=== PATIENT | female | born 1935 | race Caucasian/White ===

== ENCOUNTER → 2016-08-31 | Outpatient (CLI) | payer MEDICARE ==
[~2016-08-31] MED LIST: ACTOS30 MG PO; AMLODIPINE10 MG PO; COREG CR20 MG PO; CRESTOR40 MG PO; FUROSEMIDE 40MG40 M1 PO; LEVOTHROID0.088 MG PO; NITROGLYCERIN0.4 MG SL; OMEPRAZOLE20 MG PO
--- NOTE | 2016-08-31 21:29 | RADIOLOGY REPORT PS360 ---
CHEST(2 VIEWS-NOT PORTABLE) ORDERING PHYSICIAN : Car Elam MD PATIENT AGE: 81 years GENDER: Female INDICATION: chest symptoms HTN PROCEDURE:HISTORY of cardiac disease cardiac stents hypertension CHEST(2 VIEWS-NOT PORTABLE) COMPARISON: Previous chest film 08/25/2014 as well as portable study 6 2009 FINDINGS: We again see the small nodular density just lateral to the left frankie on. It appears stable in size measuring approximately 15 mm maximally, and again project over the anterior left third rib end. Unchanged since 2014 and likely present on 2009 study. This supports is more likely benign character. In this can be followed. Minor partially calcified density the left suprahilar region intact with stable appearance since 2009. Likely over elements disease. The right frankie and right lung appears stable. Minor chronic changes bilaterally with no discrete new findings. No pleural effusion. Heart normal size mediastinum unremarkable. Chest wall unremarkable. IMPRESSION Nothing definitely acute. Stable appearing chest. Small just less than 15 mm nodular just lateral to the left frankie again noted and can be followed at this point.
== END ==
LOC: RAD 12:42
DX: Z01.818 Encounter for other preprocedural examination (principal)

== ENCOUNTER 2017-05-23 07:33 | Day surgery (SDC) | payer MEDICARE ==
[2017-05-23 08:14] LABS: HEMOGLOBIN 14.6 g/dL (12.2-16.2); LYMPH # 1.4 K/mm3 (0.7-4.5); LYMPH % 34.8 % (10-50.0)
[2017-05-23 08:27] LABS: BUN 20 mg/dL (7-18)
[2017-05-23 08:28] LABS: GFR (ESTIMATED) 48 ML/MIN (59-)
--- NOTE | 2017-05-23 09:50 | RADIOLOGY REPORT PS360 ---
CARDIAC CATHETERIZATION DATE OF CATHETERIZATION:05/23/2017 8:57 AM PROCEDURES: 1. Left heart catheterization 2. Left ventriculogram 3. Selective coronary angiogram 4. Intravascular ultrasound to the LAD INDICATION FOR TEST: 1. Coronary artery disease 2. History of coronary artery stenting 3. 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 COMPLICATIONS: None ESTIMATED BLOOD LOSS: Less than 10 ml. TECHNIQUE: One percent lidocaine used to anesthetize the right anterior aspect of the wrist. The right radial artery was accessed via the Seldinger technique. A 6 Spanish sheath was placed in the right radial artery. 2.5 mg of verapamil, 800 mcg of nitroglycerin and 5000 U Heparin were given through the arterial sheath. The trap catheter was also used to perform left heart catheterization left ventriculogram and selective coronary angiography. A barajas catheter was also used to perform coronary angiography. At the end of the diagnostic angiogram 4000 units of heparin was administered intravenously and a JL 3 guide catheter was placed in the left main artery. A BMW wire was used to traverse the stenosis in the LAD and in intravascular ultrasound probe was advanced throughout the mid LAD stent. Intravascular ultrasound interrogation was performed which demonstrated a nicely sized stent with good apposition and perfect sizing of the stent. Proximal to the stent there was also good transitioning into the large diagonal artery with no significant peristent defect or stenosis. At the end of the procedure ACT was 381. Sheath was removed good hemostasis was achieved using TR banding patient transferred the postop holding area in stable condition. ANGIOGRAPHIC RESULTS: 1. The left main artery normal 2. The left anterior descending artery is proximally normal and then gives rise to the first diagonal artery and first septal construction job cost estimator. There is an angiographic haziness proximal to the mid LAD stent. Intravascular ultrasound probe being demonstrated this was not a significant lesion in the transitioning proximally and distally to the stent were excellent. Distal to the mid LAD stent the remaining LAD is free of disease 3. The circumflex artery is nondominant and normal 4. The right coronary artery is a dominant vessel and has mild 10% proximal mid vessel luminal irregularities 5. The PEREZ ventriculogram reveals normal to hyperdynamic at 75% 6. The left ventricular end-diastolic pressure elevated at 25 mmHg IMPRESSION: 1. Patent mid LAD stent with otherwise insignificant coronary artery disease 2. Hyperdynamic ventricle consistent with hypertensive heart disease 3. Elevated LVEDP consistent with diastolic dysfunction and diastolic congestive heart failure 4. Successful intravascular ultrasound to the mid LAD PLAN: 1. Continue medical management. 2. Patient requires additional diuresis with the addition of a negative inotropes such as diltiazem or verapamil combined with higher dose beta sandy 3. Spironolactone and Lasix in order to decrease EDP 4. Risk factor modification LDL less than 55 5. Cardiac rehabilitation 6. Avoidance of tobacco products
[2017-05-23 13:18] VITALS: BP 112/65
== END 2017-05-23 13:18 | disposition home or self-care (01) ==
LOC: CATHLAB 07:33
PROVIDERS: Internal Medicine
PROC: 4A023N7 Measurement of Cardiac Sampling and Pressure, Left Heart, Percutaneous Approach (ICD-10-PCS; 2017-05-23)
PROC: B2111ZZ Fluoroscopy of Multiple Coronary Arteries using Low Osmolar Contrast (ICD-10-PCS; 2017-05-23)
PROC: B2151ZZ Fluoroscopy of Left Heart using Low Osmolar Contrast (ICD-10-PCS; 2017-05-23)
PROC: B240ZZ3 Ultrasonography of Single Coronary Artery, Intravascular (ICD-10-PCS; principal; 2017-05-23 08:30)
DX: I25.119 Atherosclerotic heart disease of native coronary artery with unspecified angina pectoris (principal); I50.30 Unspecified diastolic (congestive) heart failure; Z95.5 Presence of coronary angioplasty implant and graft; E11.9 Type 2 diabetes mellitus without complications; R06.09 Other forms of dyspnea
CPT/HCPCS: C1725; C1769; J1644; Q9967